=== PATIENT | male | born 1955 | race Caucasian/White ===

== ENCOUNTER 2018-04-21 22:35 | Emergency (ER) | payer MEDICARE, OTHER ==
[2018-04-21] MEDS: ASPIRIN 81 MG CHEW TABLET PO ×2 (23:00)
[2018-04-21 23:19] LABS: BASO # 0.1 10^3/uL (0.0-0.2); BASO % 0.6 % (0.0-1.0); EOS # 0.2 10^3/uL (0.0-0.50); EOS % 1.8 % (0.0-3.0); HEMATOCRIT 38.4 % (42.0-52.0); HEMOGLOBIN 13.7 g/dl (13.5-17.5); IMMATURE GRANULOCYTE % 0.4 % (0-3.0); LYMPH # 2.9 10^3/uL (1.5-4.5); LYMPH % 27.3 % (24.0-44.0); MEAN CORPUSCULAR HEMOGLOBIN 31.9 pg (27.0-33.0); MEAN CORPUSCULAR HGB CONC 35.7 g/dl (32.0-36.5); MEAN CORPUSCULAR VOLUME 89.3 fl (80.0-96.0); MONO # 0.9 10^3/uL (0.0-0.8); MONO % 8.9 % (0.0-5.0); NEUTROPHILS # 6.4 10^3/uL (1.8-7.7); PLATELET COUNT, AUTOMATED 182 10^3/uL (150-450); RED CELL DISTRIBUTION WIDTH 12.6 % (11.5-14.5); WHITE BLOOD COUNT 10.5 10^3/uL (4.0-10.0)
[2018-04-21 23:46] LABS: ANION GAP 8 MEQ/L (8-16); BLOOD UREA NITROGEN 14 MG/DL (7-18); CALCIUM LEVEL 8.4 MG/DL (8.8-10.2); CARBON DIOXIDE LEVEL 31 MEQ/L (21-32); CHLORIDE LEVEL 103 MEQ/L (98-107); CK-MB VALUE MASS 2.6 NG/ML (<3.6); CPK CREATINE PHOSPHOKINASE 128 U/L (39-308); GLOMERULAR FILTRATION RATE > 60.0 (>49); GLUCOSE, FASTING 88 MG/DL (70-100); MB/CK RELATIVE INDEX 2.03 (< OR =4); POTASSIUM SERUM 2.8 MEQ/L (3.5-5.1); SODIUM LEVEL 142 MEQ/L (136-145); TROPONIN I 0.11 NG/ML (< 0.10)
[2018-04-22] MEDS ORDERED: ISOVUE-370 76% 100ML VIAL (Q9967) As Ordered ×2 (00:28)
[2018-04-22] MEDS: NITROGLYCERIN 0.4 MG SUBL TABLET SL ×2 (01:10)
[2018-04-22 02:43] LABS: CK-MB VALUE MASS 22.4 NG/ML (<3.6); MB/CK RELATIVE INDEX 9.33 (< OR =4)
[2018-04-22] MEDS: POTASSIUM CHLORIDE 10 MEQ SR TABLET PO ×2 (02:48)
[2018-04-22 03:08] LABS: CPK CREATINE PHOSPHOKINASE 240 U/L (39-308)
[2018-04-22 03:09] LABS: TROPONIN I 5.28 NG/ML (< 0.10)
[2018-04-22] MEDS: KCL 10MEQ/100ML SWI (KRUN) 10 MEQ in APPROPRIATE DILUENT 1 EA IV (03:41)
[2018-04-22 03:42] LABS: INR 0.85; PROTHROMBIN TIME 11.6 SECONDS (12.4-14.5)
[2018-04-22 03:43] LABS: PARTIAL THROMBOPLASTIN TIME 26.5 SECONDS (26.8-37.9)
[2018-04-22] MEDS: HEPARIN SOD (PORCINE) 5000 UNITS/ML VIAL IV ×2 (03:59)
[2018-04-22] MEDS: NS 1,000 ML IV ×2 (04:00)
[2018-04-22] MEDS: HEPARIN DRIP 25,000 UNITS in APPROPRIATE DILUENT 1 EA IV (04:02)
== END 2018-04-22 04:55 | disposition short-term general hospital (02) ==
LOC: M ED 04-22 04:55
DX: I21.4 Non-ST elevation (NSTEMI) myocardial infarction (principal); G47.30 Sleep apnea, unspecified; K21.9 Gastro-esophageal reflux disease without esophagitis; M10.9 Gout, unspecified; I10 Essential (primary) hypertension; M50.323 Other cervical disc degeneration at C6-C7 level; M12.88 Other specific arthropathies, not elsewhere classified, other specified site; Z79.82 Long term (current) use of aspirin; Z79.899 Other long term (current) drug therapy; Z88.8 Allergy status to other drugs, medicaments and biological substances
CPT/HCPCS: Q9967

== ENCOUNTER 2018-06-10 18:57 | Emergency (ER) | payer OTHER ==
[2018-06-10 17:45] LABS: BASO # 0.1 10^3/uL (0.0-0.2); BASO % 0.9 % (0.0-1.0); EOS # 0.1 10^3/uL (0.0-0.50); EOS % 1.6 % (0.0-3.0); HEMATOCRIT 41.4 % (42.0-52.0); HEMOGLOBIN 14.1 g/dl (13.5-17.5); IMMATURE GRANULOCYTE % 0.4 % (0-3.0); LYMPH # 1.7 10^3/uL (1.5-4.5); LYMPH % 22.7 % (24.0-44.0); MEAN CORPUSCULAR HEMOGLOBIN 32.1 pg (27.0-33.0); MEAN CORPUSCULAR HGB CONC 34.1 g/dl (32.0-36.5); MEAN CORPUSCULAR VOLUME 94.3 fl (80.0-96.0); MONO # 0.6 10^3/uL (0.0-0.8); MONO % 8.5 % (0.0-5.0); NEUTROPHILS % 65.9 % (36.0-66.0); PLATELET COUNT, AUTOMATED 206 10^3/uL (150-450); RED BLOOD COUNT 4.39 10^6/uL (4.30-6.10); RED CELL DISTRIBUTION WIDTH 12.5 % (11.5-14.5); WHITE BLOOD COUNT 7.5 10^3/uL (4.0-10.0)
[2018-06-10 17:56] LABS: INR 0.99; PROTHROMBIN TIME 13.2 SECONDS (12.1-14.4)
[2018-06-10 17:57] LABS: PARTIAL THROMBOPLASTIN TIME 26.7 SECONDS (25.4-37.6)
[2018-06-10 18:09] LABS: ALBUMIN 3.8 GM/DL (3.2-5.2); ALBUMIN/GLOBULIN RATIO 1.31 (1.00-1.93); ALT/SGPT 33 U/L (12-78); ANION GAP 6 MEQ/L (8-16); AST/SGOT 17 U/L (7-37); BILIRUBIN,DIRECT 0.2 MG/DL (0.0-0.2); BILIRUBIN,TOTAL 0.4 MG/DL (0.2-1.0); BLOOD UREA NITROGEN 10 MG/DL (7-18); CALCIUM LEVEL 9.2 MG/DL (8.8-10.2); CARBON DIOXIDE LEVEL 28 MEQ/L (21-32); CHLORIDE LEVEL 107 MEQ/L (98-107); CPK CREATINE PHOSPHOKINASE 50 U/L (39-308); CREATININE FOR GFR 1.04 MG/DL (0.70-1.30); GLOMERULAR FILTRATION RATE > 60.0 (>49); GLUCOSE, FASTING 100 MG/DL (70-100); LIPASE 200 U/L (73-393); POTASSIUM SERUM 4.1 MEQ/L (3.5-5.1); SODIUM LEVEL 141 MEQ/L (136-145); TOTAL PROTEIN 6.7 GM/DL (6.4-8.2); TROPONIN I < 0.02 NG/ML (< 0.10)
[2018-06-10 18:14] LABS: ALKALINE PHOSPHATASE 77 U/L (45-117); CK-MB VALUE MASS < 1.0 NG/ML (<3.6); FREE T4 1.11 NG/DL (0.76-1.46); NT-PRO BNP 58 PG/ML (<125)
== END 2018-06-10 20:04 | disposition home or self-care (01) ==
LOC: M ED 18:57
DX: S29.011A Strain of muscle and tendon of front wall of thorax, initial encounter (principal); E83.40 Disorders of magnesium metabolism, unspecified; X58.XXXA Exposure to other specified factors, initial encounter; Y92.89 Other specified places as the place of occurrence of the external cause; I10 Essential (primary) hypertension; E78.5 Hyperlipidemia, unspecified; K21.9 Gastro-esophageal reflux disease without esophagitis; J61 Pneumoconiosis due to asbestos and other mineral fibers; I25.2 Old myocardial infarction; Z95.5 Presence of coronary angioplasty implant and graft; Z88.1 Allergy status to other antibiotic agents; Z79.899 Other long term (current) drug therapy; Z79.02 Long term (current) use of antithrombotics/antiplatelets; Z79.82 Long term (current) use of aspirin
CPT/HCPCS: 71045

== ENCOUNTER 2024-06-16 23:11 | Emergency (ER) | payer OTHER ==
[~2024-06-16] VITALS: Ht 172.7 cm; Wt 88.6 kg
[~2024-06-16 23:11] MED LIST: ALLO100T PO; ATOR40TA75 PO; BAYE81TA7 PO; CITA10TA6 PO; CLOP75TA2 PO; DILT180C78 PO; FAMO40TA3 PO; FLAX PO; GEMF600T5 PO; HYDR12.55 PO; LOSA50TA28 PO; MAG-400T7 PO; MELO15TA28 PO; METO1TAB32 PO; OMEP40CA4 PO; PRAV20TA2 PO; VITA-183 PO; [UNRECOGNIZED DRUG - CODE] PO
[2024-06-17 00:42] LABS: BASO # 0.1 10^3/uL (0.0-0.2); BASO % 0.8 % (0.0-1.0); EOS # 0.2 10^3/uL (0.0-0.5); EOS % 1.6 % (0.0-3.0); HEMATOCRIT 44.2 % (42.0-52.0); LYMPH % 21.4 % (24.0-44.0); MEAN CORPUSCULAR HEMOGLOBIN 32.3 pg (27.0-33.0); MEAN CORPUSCULAR HGB CONC 33.9 g/dl (32.0-36.5); MEAN CORPUSCULAR VOLUME 95.3 fl (80.0-96.0); MONO % 10.6 % (2.0-8.0); NEUTROPHILS % 65.3 % (36.0-66.0); PLATELET COUNT, AUTOMATED 185 10^3/uL (150-450); RED BLOOD COUNT 4.64 10^6/uL (4.30-6.10); WHITE BLOOD COUNT 9.2 10^3/uL (4.0-10.0)
[2024-06-17 00:53] LABS: CK-MB VALUE MASS < 1.0 NG/ML (<3.6)
[2024-06-17 00:54] LABS: INR 1.08; PARTIAL THROMBOPLASTIN TIME 26.3 SECONDS (24.8-34.2); PROTHROMBIN TIME 13.6 SECONDS (12.5-14.5)
[2024-06-17 00:56] LABS: ALBUMIN 4.2 G/DL (3.2-5.2); ALKALINE PHOSPHATASE 81 U/L (46-116); ALT/SGPT 26 U/L (7.0-40); AST/SGOT 19 U/L (<34); BILIRUBIN,DIRECT 0.2 MG/DL (<0.4); BILIRUBIN,TOTAL 0.7 MG/DL (0.3-1.2); BLOOD UREA NITROGEN 13 MG/DL (9-23); CALCIUM LEVEL 11.2 MG/DL (8.3-10.6); CARBON DIOXIDE LEVEL 28 MMOL/L (20-31); CHLORIDE LEVEL 107 MMOL/L (98-107); CPK CREATINE PHOSPHOKINASE 68 U/L (46-171); CREATININE FOR GFR 0.96 MG/DL (0.70-1.30); GLOMERULAR FILTRATION RATE > 60.0 (>42); GLUCOSE, FASTING 103 MG/DL (74-106); MB/CK RELATIVE INDEX 1.47 (< OR =4); POTASSIUM SERUM 4.1 MMOL/L (3.5-5.1); SODIUM LEVEL 140 MMOL/L (136-145); TOTAL PROTEIN 6.7 G/DL (5.7-8.2)
[2024-06-17 02:45] LABS: CK-MB VALUE MASS < 1.0 NG/ML (<3.6); CPK CREATINE PHOSPHOKINASE 61 U/L (46-171); MB/CK RELATIVE INDEX 1.63 (< OR =4)
[2024-06-17] MEDS ORDERED: ISOVUE-370 76% 100ML VIAL As Ordered ONE (07:41)
[2024-06-17 08:44] LABS: MAGNESIUM LEVEL 1.9 MG/DL (1.8-2.4)
[2024-06-17] MEDS ORDERED: ISOS1TAB35 PO (09:15)
[2024-06-17] MEDS ORDERED: ALLO300T2 PO (09:15)
[2024-06-17] MEDS ORDERED: MONT10TA97 PO (09:15)
[2024-06-17] MEDS ORDERED: MAGN500T6 PO (09:17)
[2024-06-17] MEDS ORDERED: D3 H2000 PO (09:17)
[2024-06-17] MEDS ORDERED: PANT40TA29 PO (09:17)
[2024-06-17] MEDS ORDERED: HOME MED LIST COMPLETE! XX SCH (09:20)
[2024-06-17] MEDS: LIDOCAINE VISCOUS 2% SOLN 15ML UDC PO ONE (09:41)
[2024-06-17] MEDS: PANTOPRAZOLE 40MG VIAL IV ONE (09:41)
[2024-06-17] MEDS: MAALOX 30 ML SUSP *UDC PO ONE (09:42)
[2024-06-17 10:40] VITALS: BP 143/77; TEMP 96.4; O2SAT 96
[2024-06-17] MEDS ORDERED: FAMO40TA3 PO (10:47)
== END 2024-06-17 10:54 | disposition home or self-care (01) ==
LOC: M ED 23:11
DX: K21.9 Gastro-esophageal reflux disease without esophagitis (principal); R07.89 Other chest pain; I48.91 Unspecified atrial fibrillation; I25.2 Old myocardial infarction; I25.119 Atherosclerotic heart disease of native coronary artery with unspecified angina pectoris; I10 Essential (primary) hypertension; E78.5 Hyperlipidemia, unspecified; G47.33 Obstructive sleep apnea (adult) (pediatric); F10.10 Alcohol abuse, uncomplicated; Z88.1 Allergy status to other antibiotic agents; Z79.1 Long term (current) use of non-steroidal anti-inflammatories (NSAID); Z79.899 Other long term (current) drug therapy
CPT/HCPCS: 71045; 71275; 80048; 80076; 82550; 82553; 83735; 83880; 84484; 85025; 85610; 85730; 93005; 96374; 99285; J2470; Q9967